=== PATIENT | male | born 1975 | race American Indian/Alaskan Native ===

== ENCOUNTER 2020-12-18 23:43 | Emergency (ER) | payer SELFPAY ==
--- NOTE | 2020-12-19 01:02 | XRay Report ---
LUMBAR SPINE 3 VIEWS INDICATION: lower back pain wtih radiculopathy COMPARISON: None. FINDINGS: No acute, displaced fracture is seen. Alignment is within normal limits. There is mild lower thoracic spondylosis. No significant lumbar spondylosis. CONCLUSION: 1. No acute findings. Signer Name: Tray Milligan MD Signed: 12/19/2020 12:57 AM Workstation Name: [id number]
== END 2020-12-19 01:04 | disposition home or self-care (01) ==
LOC: ED 23:43
DX: M54.5 Low back pain (principal); Z53.21 Procedure and treatment not carried out due to patient leaving prior to being seen by health care provider
CPT/HCPCS: 72100